=== PATIENT | male | born 2000 | race Caucasian/White ===

== ENCOUNTER 2021-06-07 11:18 | Emergency (ER) | payer BC, SELFPAY ==
[2021-06-07 12:21] VITALS: BP 134/98; PULSE 95; RESP 21; TEMP 36.8; O2SAT 99; BMI 25.1
[2021-06-07 12:42] LABS: UTC Strep Screen (Rapid) Negative (Negative)
--- NOTE | 2021-06-07 12:50 | HMH.EDUTC ---
[facility] [place] Disposition Clinical Impression: Viral syndrome, Encounter for laboratory testing for COVID-19 virus Disposition: Home, Self-Care Condition on Discharge: Good Instructions: DI for COVID-19 (Suspected or Confirmed ), Preventing the Spread of Coronavirus Discharge Instructions Additional Instructions: *Monitor Temp, Over the counter Motrin or Tylenol as directed/as needed Tylenol every 4 hours and Motrin every 6 hours (as long as your family doctor has told you that you can take it) for fever or pain. and straight to ER if unable to lower temp less than 101.0 after medication given *Warm salt water gargles may help to soothe the throat *Throat Lozenges *Warm fluids like tea with honey may help to soothe the throat *Sleep elevated *Humidifier/Vaporizer Your throat swab was sent for culture. Those results are typically sent to your primary care. Be sure to follow up in 2-3 days with your family doctor/primary care physician if no improvement so they can review those result and treat if necessary. If you don?t have a primary care doctor, I recommend you get one but in the mean time, you will have to return to a walk in clinic Follow up IMMEDIATELY for new or worsening symptoms or no Noticeable improvement over the next 48-72 hours. 911 for difficulty breathing or swallowing You were tested for today for COVID19 your test result should be back in the next 24-48 hours, you was given instructions on how to log on the [facility] portal for your results. If you do not have internet or access you may call the [facility]. You was given a handout with instructions for Self Quarantine and Self isolation for while you wait on test results and what to do if they are positive If you are positive the Health Dept will be contacting you also Make sure to take your Vitamins Vit. C Vit D and Zinc if you can take them Prescriptions: Ondansetron [Zofran 4mg ODT] 4 mg PO TIDP PRN #6 tab PRN Reason: Nausea Transmission Status: Pending to [id number] Referrals: Ralf Ames MD [Primary Care Provider] - Forms: Work/School Release Medical Decision Making - Akash Inquiry Pt receiving controlled substance: No Akash was queried for this patient: No Vital Signs: 06/07/21 12:21 Temperature 98.2 F Temperature Source Oral Pulse Rate [Right] 95 H Respiratory Rate 21 Blood Pressure [Right Arm] 134/98 H Blood Pressure Mean [Right Arm] 110 02 Sat by Pulse Oximetry 99 - Lab Data Lab results reviewed: Yes: I reviewed the patient's lab results. Lab Results 06/07/21 12:14: Strep Scn Rapid Clinic Negative Orders (Tests/Meds): ORDERS Category Date Time Status Covid-19 Nasal PCR ([facility]) Routine Lab 06/07/21 12:14 Ordered Strep Screen Confirmation Stat Micro 06/07/21 12:14 Received [facility] [place] HPI - General Stated complaint: cvoid test Time Seen by Provider: 06/07/21 12:50 Mode of Arrival: Ambulatory Description of Symptoms (Recalled from Triage Doc. by RN): COVID TEST, FEVER, NAUSEA, SORE THROAT SINCE YESTERDAY. DENIES EXPOSURE HEENT Symptoms (Recalled from RN notes): No Resp Symptoms (Recalled from RN notes): No Skin Symptoms (Recalled from RN notes): No MS Symptoms (Recalled from RN notes): No Functional Status (Recalled from RN notes): WNL - History of Present Illness Provider Complaint: Patient statse that he hasnt been around anyone that he is aware of that was positive for COVID states that he has been not feeling well since yesterday State that he has been having sore throat, body aches, low grade fever and nausea States that he wanted to get tested - Related Data Previous Rx's Medication Instructions Recorded Ondansetron [Zofran 4mg ODT] 4 mg PO TIDP PRN #6 tab 06/07/21 Allergies Allergy/AdvReac Type Severity Reaction Status Date / Time No Known Allergies Allergy Verified 06/07/21 12:24 - Worker's Comp Is this a Worker's Comp case?: No [facility] History - Hepatitis A
[2021-06-07 13:05] VITALS: BP 134/98; PULSE 95; RESP 21; TEMP 36.8; O2SAT 99
== END 2021-06-07 13:06 | disposition home or self-care (01) ==
PROVIDERS: Emergency Provider Nurse Practitioner; PCP Family Medicine
DX: U07.1 COVID-19 (principal); B34.9 Viral infection, unspecified
CPT/HCPCS: 87880; 99202; G0463; U0003